=== PATIENT | female | born 1955 | race Caucasian/White ===

== ENCOUNTER → 2024-07-06 08:26 | Outpatient (REF) | payer OTHER, SELFPAY | LOC: HWWDC 08:26 | PROVIDERS: ATTENDING PHYSICIAN Family Medicine | DX: Z12.31 Encounter for screening mammogram for malignant neoplasm of breast (principal); Z87.891 Personal history of nicotine dependence | CPT/HCPCS: 71271; 77063; 77067 ==

== ENCOUNTER 2024-11-26 23:28 | Inpatient (IN) | payer OTHER, SELFPAY ==
[2024-11-26 20:22] VITALS: BP 134/94
[2024-11-26 20:57] VITALS: BP 145/72
[2024-11-26 20:58] VITALS: BMI 44.1
[2024-11-26 21:00] VITALS: BP 144/77
[2024-11-26 21:02] LABS: Hematocrit 44.1 % (37.0-47.0); Hemoglobin 15.2 g/dL (12.0-16.0); Mean Corp Hgb Conc. 34.5 g/dL (33.0-37.0); Mean Corpuscular Volume 89.3 fL (81.0-99.0); Nucleated Red Blood Cells % 0 %; Platelet Count 225 10^3/uL (130-400); Red Cell Dist. Width 11.5 % (11.5-14.5)
[2024-11-26 21:12] LABS: ALT (SGPT) 32 U/L (0-35); AST (SGOT) 60 U/L (14-36); Albumin 4.3 g/dl (3.5-5.0); Alkaline Phosphatase 51 U/L (38-126); Blood Urea Nitrogen 19 mg/dl (7-17); Calcium 9.2 mg/dl (8.4-10.2); Carbon Dioxide 25 mmol/L (22-30); Chloride 108 mmol/L (98-107); Estimated Creatinine Clearance 102 ml/min; Glucose 129 mg/dl (70-99); Lipase 37 U/L (23-300); Potassium 3.7 mmol/L (3.5-5.1); Sodium 140 mmol/L (135-145); Total Protein 7.0 g/dl (6.3-8.2); eGFR > 60.00
[2024-11-26 21:23] LABS: Troponin I < 0.012 ng/ml
[2024-11-26] MEDS: DILAUDID 1 MG IV (21:52)
[2024-11-26] MEDS: PROTONIX IV 40 MG IV (21:52)
[2024-11-26 22:00] VITALS: BP 130/75
--- NOTE | 2024-11-26 22:49 | ED.GENMED ---
History of Present Illness
General
Chief Complaint: Abdominal Symptoms
Source: patient
Exam Limitations: none
Time Seen by Provider: 11/26/24 20:42
Nursing documentation reviewed up to this point in time: agreed with
History of Present Illness
History of Present Illness:
see MDM
Past History
Past History
ED Past Medical History: HTN, Hypercholesterolemia, Hypothyroidism and Other (Arthritis)
ED Past Surgical History: Other
Social History
Tobacco: Non-smoker
Phy Exam
Physical Exam
Physical Exam:
GENERAL: Alert , looks a little pale, uncomfortable
EYE: pupils equal and reactive
NECK: Supple
ENT: o/p clr, mmm.
CARDIAC: Regular rate and rhythm .
LUNGS: Clear breath sounds bilaterally, no acute respiratory distress, no wheezes/rales/rhonchi
ABDOMEN: Soft, mild epigastric tenderness, no r/g, no cvat, normal bowel sounds
NEUROLOGICAL: Alert and oriented, no focal neuro deficits
SKIN: Warm and dry, skin intact.
MUSCULOSKELETAL: No edema, well perfused. neg nicko's sign
PSYCH: Normal and appropriate interaction.
Course
Orders/Labs/Results
Orders:
Orders
11/26/24 20:18
ECG [Electrocardiogram (*1)] Urgent
Reason for Study: Chest Pain
EKG- Treatment ONCE
11/26/24 20:50
Complete Blood Count/With Diff Urgent
Comprehensive Metabolic Panel Urgent
Lipase Urgent
Troponin I Urgent
11/26/24 21:15
HYDROmorphone [Dilaudid] 1 mg IV NOW STA
Pantoprazole [Protonix IV] 40 mg IV NOW STA
CR Chest Single View Urgent
Reason For Exam: epigastric
11/26/24 21:17
US Abdomen Complete/Upper Urgent
Comment:
Reason For Exam: epigastric pain
Abnormal Lab Results
11/26/24
20:50
Chloride 108 H mmol/L
(98-107)
BUN 19 H mg/dl
(7-17)
Glucose 129 H mg/dl
(70-99)
AST 60 H U/L
(14-36)
11/26/24 20:50
11/26/24 20:50
Vital Signs
Initial and Last Documented VS:
Initial Vital Signs
Temp Pulse Resp BP Pulse Ox
36.9 C 84 18 134/94 96
11/26/24 20:22 11/26/24 20:22 11/26/24 20:22 11/26/24 20:22 11/26/24 20:22
Last Documented Vital Signs
Temp Pulse Resp BP Pulse Ox
36.7 C 77 17 144/77 97
11/26/24 20:57 11/26/24 21:00 11/26/24 21:00 11/26/24 21:00 11/26/24 22:49
MDM/Problems Addressed
Differential Diagnosis Includes:
see MDM
MDM/Problems Addressed:
Note:
CHIEF COMPLAINT(S)
Abdominal pain and discomfort, described as feeling like trapped gas, with associated diarrhea and cold sweats.
HISTORY OF PRESENT ILLNESS
The patient is a 69-year-old female presenting with abdominal pain and discomfort that began last night. She reports previously experiencing a similar episode two years ago, which was evaluated at [facility] and diagnosed as a gallbladder
attack. The patient still has her gallbladder. Last night, after eating watermelon for dinner, she experienced pain and diarrhea throughout the night. The symptoms improved with the use of Tums. However, after consuming a turkey burger with onion
and tomato today, her symptoms recurred and intensified, accompanied by breaking out in a cold sweat, but not nausea or vomiting. The patient describes the pain as feeling like 'trapped gas' located in the upper abdomen, worsened after eating
certain foods such as onions and tomatoes. She has a recognized sensitivity to specific foods including avocados, bananas, and guacamole.
PAST MEDICAL AND SURIGICAL HISTORY
She has a history of a gallbladder attack diagnosed two years ago but has not had any surgeries on her abdomen. She denies any surgical history or previous cardiac catheterizations.
MEDICATIONS
Current medications include Verapamil and Lisinopril for blood pressure management.
ALLERGIES
Allergic to statins.
REVIEW OF SYSTEMS
- Gastrointestinal: Reports abdominal pain described as feeling like trapped gas, diarrhea, and episodes of significant pain rated at a 10 out of 10.
- Cardiovascular: No chest pain typical of myocardial infarction, no shortness of breath.
- Constitutional: Cold sweats and a sense of discomfort.
- Neurological: No reported dizziness or syncope.
PHYSICAL EXAM
- Abdominal: Staff intent on examining her abdomen; pain noted by the patient to be in the upper region, similar to previous gallbladder issues.
- Nursing notes reviewed and vital signs reviewed.
PLAN
- Order blood work and electrocardiogram (ECG) to rule out cardiac causes.
- Administer intravenous medications to manage pain and discomfort, including potential anti-acids.
- Evaluate gallbladder function and potential pathology through imaging.
DIFFERENTIAL DIAGNOSIS
The Differential Diagnosis includes, in no particular order and is not limited to:
1. Cholecystitis
2. Gastroesophageal reflux disease (GERD)
3. Peptic ulcer disease
4. Pancreatitis
5. Ischemic heart disease
6. Gastritis
7. Irritable bowel syndrome
8. Food intolerance or sensitivity
9. Acute myocardial infarction
10. Small bowel obstruction
The patient, a 69-year-old female with a history of hypertension, presented to the emergency department with gastric and back pain that began last night and improved overnight. Her pain returned after eating a turkey sandwich with tomato and onion.
She experienced excess gas, sweating, and significant epigastric pain that prompted her to seek emergency care, concerned it might be cardiac in nature. On arrival, she appeared uncomfortable but reported some relief after belching. An EKG showed no
ischemic changes. Physical examination revealed mild epigastric tenderness and a negative Mota sign. Ultrasound of the epigastric and right upper quadrant showed cholecystitis without cholangitis, and a slightly dilated common bile duct. Liver
function tests (LFTs) showed minimal elevation. She was evaluated for potential cholidocholithiasis, given the slightly elevated liver enzymes and dilated common bile duct. A decision was made to admit her for further evaluation with MRCP.
Additionally, her troponin levels were negative, ruling out myocardial infarction.
Note:
Disposition:
SUMMARY OF ENCOUNTER
The patient, a 69-year-old female with a history of hypertension, presented to the emergency department with gastric and back pain that began last night and improved overnight. Her pain returned after eating a turkey sandwich with tomato and onion.
She experienced excess gas, sweating, and significant epigastric pain that prompted her to seek emergency care, concerned it might be cardiac in nature. On arrival, she appeared uncomfortable but reported some relief after belching. An EKG showed no
ischemic changes. Physical examination revealed mild epigastric tenderness and a negative Mota sign. Ultrasound of the epigastric and right upper quadrant showed cholecystitis without cholangitis, and a slightly dilated common bile duct. Liver
function tests (LFTs) showed minimal elevation. She was evaluated for potential cholidocholithiasis, given the slightly elevated liver enzymes and dilated common bile duct. A decision was made to admit her for further evaluation with MRCP.
Additionally, her troponin levels were negative, ruling out myocardial infarction.
DISPOSITION
Admit
ASSESSMENT
Probable cholecystitis with dilated common bile duct, necessitating further evaluation for choledocholithiasis.
MANAGEMENT OF THE PATIENTS CARE WAS DISCUSSED WITH
Dr. Pérez from Gastroenterology was consulted and is aware of the patient�s condition and plan for MRCP.
PLAN
Admit the patient for further evaluation including an MRCP to assess the biliary tree for choledocholithiasis. Continue to monitor vital signs and manage symptoms.
INDEPENDENT REVIEW OF LABS AND INTERPRETATION OF TESTS
My independent review of liver function tests (LFTs) shows minimal elevation.
My independent review of lipase is normal.
My independent review of CBC is normal.
My independent review of the EKG indicates non-ischemic changes.
My independent interpretation of the ultrasound reveals cholecystitis and a slightly dilated common bile duct.
MEDICATION RECONCILIATION
Current medications include verapamil and lisinopril for hypertension.
MEDICAL DECISION MAKING
-Complexity of Data Reviewed: Chronic conditions affecting care: Hypertension, high cholesterol. Differential diagnosis includes cholecystitis, choledocholithiasis, gastroesophageal reflux disease, peptic ulcer disease, pancreatitis, ischemic heart
disease, gastritis, irritable bowel syndrome, food intolerance or sensitivity, acute myocardial infarction, small bowel obstruction.
-Data:
Category 1
Clinical evaluation included review of EKG and liver function tests. Ultrasound was used to assess the gallbladder and biliary system.
Category 2
My independent interpretation of the ultrasound confirmed cholecystitis with a dilated common bile duct.
Category 3
Discussion of management with Dr. Pérez from Gastroenterology.
DIAGNOSIS
1. Cholecystitis (ICD-10: K81.9)
2. Choledocholithiasis, suspected (ICD-10: K80.5)
*Pulse Oximetry
SaO2: 97
Oxygen Mode of Delivery: Room air
Patient hypoxic: no (96)
*Critical Care Note
Total Time (30-74mins, 75-104mins- exclusive of procedures): Not Applicable
ED Attending Note
-
Portions of this chart may have been created with voice recognition software.� Occasional wrong word or��sound alike� substitutions may have occurred due to the inherent limitations of voice recognition software.
Discharge Plan
Departure
Patient Disposition: Admit
Date of Disposition: 11/26/24
Time of Disposition: 22:45
Admit to: Med/Surg
Presentation/result/management discussed w/ accepting MD/DO: Hospitalist
Condition: Fair
Covid-19: Not Applicable
Discharge Problem:
Cholelithiasis, Common bile duct dilation
Prescriptions:
No Action
verapamil 180 MG tablet extended release
360 mg PO HS
levothyroxine 25 MCG tablet
75 mcg PO DAILY AT 0700
docusate sodium 100 MG capsule
200 mg PO HS
cholecalciferol (vitamin D3) 2,000 UNITS tablet
2,000 units PO DAILY
vit B1 [id number] [B Complex w-Vit C] 1 EACH tablet
1 ea PO DAILY
oxycodone 5 MG tablet
5 mg PO Q4HPRN PRN (Reason: mod-severe pain) Qty: 7 0RF
Referrals:
Zuri Sarkar DO [Family Provider, Family Practice]
Interventions
Interventions:
*Risk Screen - Suicide Last Done: 11/26/24 20:25
*General Assessment Last Done: 11/26/24 21:00
*Neglect/Abuse Screening Last Done: 11/26/24 20:25
*ED- Fall Risk Assessment Last Done: 11/26/24 21:00
*ED COVID-19 Vaccine History Last Done: 11/26/24 21:00
WB-Saguuv-Oksklvebab Assessment Last Done: 11/26/24 21:02
Discharge Date and Time
Print Language: PASHTO
--- NOTE | 2024-11-26 22:51 | HPS.HSE ---
Family Physician
-
Family Physician: Zuri Sarkar
Chief Complaint
-
Abdominal pain
History of Present Illness
This is a 69-year-old female with past medical history significant for hypothyroid, morbid obesity, obstructive sleep apnea coming to the emergency department with abdominal pain for 1 day.
Patient reports epigastric, blood radiating to the back that started after having a meal containing onion. She reports nausea but no vomiting. She denies having any diarrhea. She reports breaking into a cold sweat. She denies any shortness of
breath palpitations lightheadedness or dizziness. She denies having any pain in her chest. Patient reported that she had a similar episode about 2 years ago at [facility] and was told he has biliary colic with cholelithiasis.
In the emergency department, she was afebrile, blood pressure was 140/77 with a pulse of 77 and she is satting 87% on room air.
ECG shows normal sinus rhythm at rate of 79 without any acute ischemic changes. Troponin was negative. Chest x-ray was clear.
CBC was unremarkable, electrolyte BUN/creatinine were normal. AST was 60 otherwise LFTs were normal. Lipase was normal. Total bilirubin was normal.
Right upper quadrant ultrasound showing mild hepatomegaly with findings suggesting diffuse fatty liver. There was cholelithiasis without gallbladder wall thickening or distention. No intrahepatic ductal dilation. large common bile duct at 0.9 cm.
Medical History
Past Medical History
Past Medical History: Reports HTN, Hypercholesterolemia and Other (Obesity, MILTON on CPAP)
Past Surgical History: Reports Orthopedic (Right total knee arthroplasty)
Social History
Tobacco: Non-smoker
Alcohol: None
Drug: None
Personal:
Living: With Family
Family History
Family History: Not pertinent
Allergies / Home Medications
Allergies reflects when Allergies were last updated in [facility].
Home Medications with original date entered in [facility]
Allergy/Medication List:
Allergies
Allergy/AdvReac Type Severity Reaction Status Date / Time
levofloxacin (From Levaquin) Allergy leg pain Verified 11/26/24 20:24
Yuvrivz-VAH-AzE Reductase Allergy MUSCLE PAIN Verified 11/26/24 20:24
Inhibitor (Zvcygrg-Zpp-Pxm
Reductase Inhibitor)
Home Medications
cholecalciferol (vitamin D3) 50 mcg (2,000 unit) tablet 2,000 units PO DAILY 01/28/21
docusate sodium 100 mg capsule 200 mg PO HS 01/28/21
levothyroxine 25 mcg tablet 75 mcg PO DAILY AT 0700 01/28/21
verapamil 180 mg tablet,extended release 360 mg PO HS 01/28/21
[id number] 18 mg-10 mg-45 mg-5 mg-250 mg tablet (B Complex w-Vit C) 1 ea PO DAILY 01/28/21
oxycodone 5 mg tablet 5 mg PO Q4HPRN PRN mod-severe pain #7 tabs 01/30/21
Review of Systems
-
Constitutional: Reports No Symptoms
EENT: Reports No Symptoms
Respiratory: Reports No Symptoms
Cardiac: Reports No Symptoms
Abdomen/GI: Reports Abdominal Pain
: Reports No Symptoms
Musculoskeletal: Reports No Symptoms
Skin: Reports No Symptoms
Neurological: Reports No Symptoms
Endocrine: Reports No Symptoms
Hematologic/Lymphatic: Reports No Symptoms
Psych: Reports No Symptoms
Physical Exam
Vital Signs
Vital Signs
Temp Pulse Resp BP Pulse Ox
98.0 F 77 17 144/77 97
11/26/24 20:57 11/26/24 21:00 11/26/24 21:00 11/26/24 21:00 11/26/24 22:49
Physical Exam
General: Well Developed, Well Nourished and No Apparent Distress
HEENT: NormoCephalic, Moist mucous membranes and Atraumatic
Respiratory: Clear
Cardiac: S1/S2 and Regular Rhythm; No Murmur or Rub
GI: Soft, Non Tender, Non Distended and Normal Bowel Sounds; No Organomegaly
Rectal: Deferred by Provider
Musculoskeletal: No Clubbing, No Cyanosis and No Edema
Skin: No Rash
Neuro: Nonfocal/grossly intact
Laboratory Results
-
11/26/24 20:50
11/26/24 20:50
Laboratory Results
Total Bilirubin 0.5 mg/dl (0.2-1.3) 11/26/24 20:50
AST 60 U/L (14-36) H 11/26/24 20:50
ALT 32 U/L (0-35) 11/26/24 20:50
Alkaline Phosphatase 51 U/L (38-126) 11/26/24 20:50
Troponin I < 0.012 ng/ml 11/26/24 20:50
Lipase 37 U/L (23-300) 11/26/24 20:50
Data Reviewed
-
Ultrasound: Report Reviewed by me
Medical Tests (Nuc Med, Echo, EKG etc): Image Personally Visualized and interpreted
Lab Data: Labs Reviewed by me
Impression/Plan
-
IMPRESSION:
69 y.o with one day history of abdominal pain worse with food intake found to have biliary ductal dilation and cholelithiasis on U/S. Labs are mostly benign with mild AST elevation to 60 only. CBD at 9mm.
PLAN:
Abdominal pain - Possible choledocholithiasis w/o cholangitis or cholecystitis
- admit to med/surg
- NPO after midnight
- pain control and IV fluids
- mrcp in am
- GI consulted
Hypothyroid
- continue levothyroxine
HTN
- continue verapmil
MILTON
- not currently on CPAP
DVT PPX - lovenox sq
Code status - Full Code
[2024-11-26 23:00] VITALS: BP 147/97
[2024-11-26] MEDS: CALAN EXTENDED RELEASE 360 MG PO (23:57)
[2024-11-27] VITALS (10 sets, daily range): BP systolic 114–148; BP diastolic 60–85; BMI 41.1
[2024-11-27] MEDS: LR 1000 IV ×2 (00:01→13:11)
[2024-11-27] MEDS: SYNTHROID 75 MCG PO (05:28)
[2024-11-27 05:41] LABS: Hematocrit 41.7 % (37.0-47.0); Hemoglobin 14.5 g/dL (12.0-16.0); Mean Corp Hgb Conc. 34.8 g/dL (33.0-37.0); Mean Corpuscular Volume 89.1 fL (81.0-99.0); Platelet Count 224 10^3/uL (130-400); Red Cell Dist. Width 11.5 % (11.5-14.5)
[2024-11-27 06:08] LABS: ALT (SGPT) 147 U/L (0-35); AST (SGOT) 145 U/L (14-36); Albumin 4.5 g/dl (3.5-5.0); Alkaline Phosphatase 64 U/L (38-126); Blood Urea Nitrogen 16 mg/dl (7-17); Calcium 9.8 mg/dl (8.4-10.2); Carbon Dioxide 27 mmol/L (22-30); Chloride 105 mmol/L (98-107); Estimated Creatinine Clearance 119 ml/min; Glucose 102 mg/dl (70-99); Potassium 4.2 mmol/L (3.5-5.1); Sodium 139 mmol/L (135-145); Total Protein 7.2 g/dl (6.3-8.2); eGFR > 60.00
--- NOTE | 2024-11-27 08:46 | CON.GI ---
Addendum entered and electronically signed by Elizabeth Weems Do, MD 11/27/24 14:51:
I saw and evaluated the patient. I reviewed the resident�s note and agree with findings and plan as documented in the resident�s note.
María is a 69yo W with h/o obesity and MILTON who presents with acute epigastric abd pain. She has similar pain in the past and was seen at [facility] for possible biliary colic. She did start GLP1 one month ago. Vitals reviewed stable. Exam obese
no guarding or rebound. Labs reviewed LFTs rising. Abd Us fatty liver, CBD is 9mm prior was 7mm.
Impression
- Acute abd pain with rise in LFTs
Suspect biliary colic
- Fatty liver
- Obesity
- Hypothyroidism
- GERD
- Hyperlipidemia
- MILTON
Recommendations
- She declines MRI due to claustrophobia
- Appreciate surgical recs to OR today with IOC
- Diet per surgery
- Serial LFTs
- C/w PPI
GI will follow peripherally Please call us for questions
Hospitalist updated.
Original Note:
Consultation
-
Date/Time Consultation Requested: 11/26/2024 23:47
Date/Time Consultation Performed: 11/27/2024 08:00
Requesting Provider: Mariluz Handley MD
Performing Provider: Valeriano Patterson DO (Resident); Elizabeth Call MD
Reason for Consultation: Abdominal Pain
Medical History
Chief Complaint / HPI
Chief Complaint: Abdominal Pain
History of Present Illness:
María Swann is a 69F with a PMHx of hypothyroidism, obesity (recently started on Zepbound 1 month ago), MILTON, GERD, and hyperlipidemia who presented to the ED last night with abdominal pain.
Patient endorses epigastric abdominal pain that is intermittent, radiates through to the back and described as 'pressure-like', that started 2 nights ago. On that night she reports eating watermelon which she never does, because it usually gives her
abdominal pains and diarrhea. Shortly after eating watermelon, patient started to experience the pain so she took a Tums which did not relieve the pain. The episode lasted a few hours but subsided before going to bed. The patient woke up the next
morning in her usual state of health. She was okay until dinner time (1800) when she experienced that pain again but more severe after a salad consisting of onion, tomato and olive oil. At this time, the patient also because diaphoretic, so her
brought her to the ED. Patient otherwise denies nausea, vomiting, jaundice, icterus, change in stool color, change in urine color, fevers, chills, pruritus, or confusion.
Patient states this episode is similar to one that she experienced approximately 2 years ago. She was seen at [facility] where US showed cholelithiasis and she was dx with biliary colic. She also reports that approximately 19 months ago in April
2023, she was having episodes of chalky white stools and orange urine, which prompted evaluation by her primary care. US at that time showed cholelithiasis with mild GB thickening without ductal dilatation with CBD measuring 7mm.
ED Course:
Afebrile, O2 87% on RA, VS otherwise stable, with a normal exam. CBC wnl, BMP wnl, AST 60, LFTs otherwise wnl. Lipase wnl.
RUQ US: mild hepatomegaly, diffuse fatty liver, cholelithiasis without wall thickening/distension. No intrahepatic ductal dilatation. CBD 9mm when compared to 7mm on 04/18/2023.
This morning the patient states that she is feeling much better after medical management. She denies abdominal pain, fever, chest pain, nausea, vomiting, or diarrhea. She is awaiting MRCP.
Family History
Family history includes a brother with soft cell tumor of liver. Aunt was diagnosed with early colon CA at age 40 with colectomy, otherwise no first degree relatives with colon CA but patient endorses multiple family members in which high risk
polyps were noted. Patient herself has history of high risk polyp for which she was getting more frequent colonoscopies. Patient endorses after last colonoscopy she was cleared for q 5 year scopes. Uncle and aunts with history of cholelithiasis but
no first degree relatives. No family history of IBD.
Dietary History
Patient endorses eating mainly salads and grilled chicken because nothing agrees with her stomach. Notes that watermelon, which she ate on first night, and other fruits in general cause her abdominal pain and diarrhea, although this episode is
different. She also notes a history chronic constipation for which she takes daily psyllium husk and stool softeners. She notes normally having daily bowel movements but being more constipated starting around 1 month ago. She was also recently
started on Zepbound around that time and has been on the 2.5mg weekly dose.
Past Medical History
Past Medical History: Other (hypothyroidism, obesity (recently started on Zepbound 1 month ago), MILTON, GERD, and hyperlipidemia)
Past Surgical History: Orthopedic (R Knee TKR; denies abdominal surgeries. )
Social History
Tobacco: Non-Smoker
Alcohol: Occasional (wine)
Drug: None
Personal:
Living: With Family
Family History
Family History: Other (Reviewed, see HPI. )
Allergies / Home Medications
Allergy/AdvReac Type Severity Reaction Status Date / Time
levofloxacin (From Levaquin) Allergy leg pain Verified 11/26/24 20:24
Uqgmovi-ZXA-MiH Reductase Allergy MUSCLE PAIN Verified 11/26/24 20:24
Inhibitor (Txyqyjo-Kws-Lla
Reductase Inhibitor)
�Medication �Instructions �Recorded
levothyroxine 25 mcg tablet 75 mcg PO DAILY AT 0700 01/28/21
verapamil 180 mg tablet,extended 360 mg PO HS 01/28/21
release
rosuvastatin 5 mg tablet 5 mg PO DAILY 11/26/24
Review of Systems
-
History Source: Patient
All other systems: A 12 pt ROS was Negative except as stated above in HPI
Vital Signs
Temp Pulse Resp BP Pulse Ox
97.9 F 52 12 114/60 94
11/27/24 08:05 11/27/24 08:05 11/27/24 08:05 11/27/24 08:05 11/27/24 08:05
Physical Exam
Exam
General: No Apparent Distress and Comfortable; Negative Fever or Sweats
HEENT: Normocephalic and Anicteric
Respiratory: Clear; Negative Wheezes, Rales or Rhonchi
Cardiac: S1/S2 and Regular Rhythm
GI: Soft, Non Tender, Non Distended and Normal Bowel Sounds
Skin: Warm
Neuro: Awake
Psych: Calm
Results
WBC 6.3 10^3/uL (4.8-10.8) 11/27/24 05:31
Hgb 14.5 g/dL (12.0-16.0) 11/27/24 05:31
Hct 41.7 % (37.0-47.0) 11/27/24 05:31
MCV 89.1 fL (81.0-99.0) 11/27/24 05:31
Plt Count 224 10^3/uL (130-400) 11/27/24 05:31
Absolute Neuts (auto) 3.4 10^3/uL (1.4-6.5) 11/26/24 20:50
Sodium 139 mmol/L (135-145) 11/27/24 05:31
Potassium 4.2 mmol/L (3.5-5.1) 11/27/24 05:31
Chloride 105 mmol/L (98-107) 11/27/24 05:31
Carbon Dioxide 27 mmol/L (22-30) 11/27/24 05:31
BUN 16 mg/dl (7-17) 11/27/24 05:31
Creatinine 0.6 mg/dL (0.6-1.0) 11/27/24 05:31
Calcium 9.8 mg/dl (8.4-10.2) 11/27/24 05:31
Total Bilirubin 0.5 mg/dl (0.2-1.3) 11/27/24 05:31
AST 145 U/L (14-36) H 11/27/24 05:31
ALT 147 U/L (0-35) H 11/27/24 05:31
Alkaline Phosphatase 64 U/L (38-126) 11/27/24 05:31
Lipase 37 U/L (23-300) 11/26/24 20:50
Diagnostic Image Results:
RUQ US 11/26/24: Mild hepatomegaly with findings suggesting diffuse fatty liver. Cholelithiasis. No gallbladder wall thickening or findings to suggest intrahepatic biliary tract dilatation. Enlarged common bile duct at 0 9 cm. Negative sonographic
Mota's sign.
RUQ US 04/18/23: Findings suggesting diffuse fatty liver. Cholelithiasis with mild gallbladder wall thickening. Negative sonographic Mota's sign. No findings to suggest biliary tract dilatation.
GI Procedures:
EUS/aspiration on 06/12/2019 with results negative for malignancy in the setting of pancreatic cysts.
Colonoscopy:
02/2020: Hyperplastic polyp, negative histology.
Colonoscopy due: February 2025.
Assessment / Plan
-
María Swann is a 69F with a PMHx of hypothyroidism, obesity (recently started on Zepbound 1 month ago), MILTON, GERD, and hyperlipidemia who presented with intermittent epigastric abdominal pain after eating meals that is similar to an episode two
years ago when she was diagnosed with biliary colic. Patient has been afebrile with normal WBCs. US of the RUQ showed cholelithiasis with a mildly distended CBD of 9mm that is compared to a 7mm diameter on US 17 months ago. LFTs on admission were
mostly unremarkable with only a mild elevation in AST to 60. LFTs this morning are rising with AST 145 and ALT 147, with normal Tbili, Dbili, and Alk-phos. This could represent early choledocholithiasis. MR/MRCP was ordered by the primary team.
#Cholelithiasis
#Transaminitis
#History of Biliary Colic
#Steatohepatitis
#History of Recent Medication Initiation (Zepbound)
#Chronic Constipation
- Await MR/MRCP results
- Continue NPO
- If study reveals a stone, consider ERCP for stone removal
- If MRCP is equivocal consider EUS +/- ERCP
- Continue to monitor LFTs, WBC, temps
- Continue to monitor for signs of pancreatitis in the setting of recent Zepbound, although initial lipase was normal
- May need to consider fructose intolerance as a potential diagnosis for evaluation in the outpatient setting given history
- Continue Bowel Regimen
- Given recurrence of sx, may opt for elective CCY; consult GS.
Total Time Spent with Patient (in minutes): 42
Data Reviewed
-
Ultrasound: Report Reviewed by me and Discussed with Patient
Old Records: Reviewed
-
-
Thank you for consultation and allowing me to participate in the patient's care. Please call the radio communications mechanician GI physician during the after hours with any questions or concerns.
--- NOTE | 2024-11-27 09:13 | W.PN.HOSP.TC ---
Addendum entered and electronically signed by Bob Feliciano DO 11/27/24 17:33:
Dr. Lovelace graciously accepted the patient to his service and plans to discharge her himself.
Original Note:
Today's Communication/Plan
-
N.p.o.
IV fluids
Analgesics
MRCP
General Surgery consult
Assessment / Plan
Assessment / Plan
Gen-AAOx3, NAD
HEENT-NC, AT, anicteric, clear oral mm
Neck-supple
CV-reg, no M, +S1/S2
Lungs-clear B/L
Abd-soft, NT, ND
Ext-no edema
Musculoskeletal-no cyanosis, clubbing
Skin-warm and dry
Neuro-grossly non-focal
Psych-calm, cooperative
Biliary colic -symptomatic cholelithiasis. No signs or symptoms of sepsis.
Ultrasound shows mild hepatomegaly, diffuse fatty liver, cholelithiasis, no gallbladder wall thickening or intrahepatic biliary ductal dilation. Enlarged CBD, 0.9 cm. Negative sonographic Mota sign.
Elevated transaminases noted, bilirubin and alkaline phosphatase normal.
Given improvement in pain, suspect she passed a gallstone. MRCP pending.
General surgery consult for eventual cholecystectomy. Discussed with patient.
She had similar symptoms 2 years ago and was hospitalized at [facility].
Continue n.p.o., IV fluids.
Hyperlipidemia -hold Crestor for elevated transaminases.
Hypothyroidism -continue levothyroxine.
Essential hypertension -stable.
MILTON -uses CPAP.
Morbid obesity due to excess calories
Full code
Anticipated Discharge: > 48 hours
Subjective/Interval History
-
Date of Service: November 27, 2024
Patient seen and examined. Feels better, denies abdominal pain. No complaints.
Objective Data
-
Labs:
Laboratory Results
11/27/24
05:31
WBC 6.3
Hgb 14.5
Hct 41.7
Plt Count 224
Sodium 139
Potassium 4.2
Chloride 105
Carbon Dioxide 27
BUN 16
Creatinine 0.6
Glucose 102 H
Calcium 9.8
Total Bilirubin 0.5
AST 145 H
ALT 147 H
Alkaline Phosphatase 64
Vital Signs:
Vital Signs
Temp Pulse Resp BP Pulse Ox
97.9 F 52 12 114/60 94
11/27/24 08:05 11/27/24 08:05 11/27/24 08:05 11/27/24 08:05 11/27/24 08:05
I&O
11/26/24 11/27/24 11/28/24
06:59 06:59 06:59
Intake Total 900 / 900
Balance 900 / 900
Review of Systems
-
History Source: Patient
All other systems: Reviewed and negative
--- NOTE | 2024-11-27 13:47 | CON.GS ---
Addendum entered and electronically signed by Elizabeth Weems Do, MD 11/27/24 14:52:
Please disregard the below addendum.
Meant to addend Resident's note dated today
Addendum entered and electronically signed by Elizabeth Weems Do, MD 11/27/24 14:23:
I saw and evaluated the patient. I reviewed the resident�s note and agree with findings and plan as documented in the resident�s note.
María is a 69yo W with h/o obesity and MILTON who presents with acute epigastric abd pain. She has similar pain in the past and was seen at [facility] for possible biliary colic. She did start GLP1 one month ago. Vitals reviewed stable. Exam obese
no guarding or rebound. Labs reviewed LFTs rising. Abd Us fatty liver, CBD is 9mm prior was 7mm.
Impression
- Acute abd pain with rise in LFTs
Suspect biliary colic
- Fatty liver
- Obesity
- Hypothyroidism
- GERD
- Hyperlipidemia
- MILTON
Recommendations
- She declines MRI due to claustrophobia
- Appreciate surgical recs to OR today with IOC
- Diet per surgery
- Serial LFTs
- C/w PPI
GI will follow peripherally Please call us for questions
Hospitalist updated.
Original Note:
Consultation
-
Date/Time Consultation Performed: 11/27/24
Requesting Provider: Braden
Performing Provider: Radu
Reason for Consultation: Biliary colic
Medical History
-
Chief Complaint: Abd pain
History of Present Illness:
69F with acute onset RUQ/epigastric pain with radiation to the back. Prior similar episodes including one with pale stools and dark urine. Pain self limited and now pain is improved. Feels like 'bricks on my belly, this episode began after eating
watermelon. She also ate a turkey burger and a sald with olive oil that worsened her pain. Denies f/c/n/v, denies stool/urine changes this episode.
Past Medical History
Past Medical History: Other (hypothyroidism, obesity (recently started on Zepbound 1 month ago), MILTON, GERD, and hyperlipidemia))
Past Surgical History: Orthopedic
Social History
Tobacco: Non-Smoker
Alcohol: Occasional
Drug: None
Personal:
Living: With Family
Family History
Family History: Reviewed & Noncontributory
Allergies / Home Medications
Allergy/AdvReac Type Severity Reaction Status Date / Time
levofloxacin (From Levaquin) Allergy leg pain Verified 11/26/24 20:24
Txbhvlz-RWX-BwS Reductase Allergy MUSCLE PAIN Verified 11/26/24 20:24
Inhibitor (Emyqmry-Nes-Msh
Reductase Inhibitor)
�Medication �Instructions �Recorded �Confirmed �Type
levothyroxine 25 mcg tablet 75 mcg PO DAILY AT 0700 Thyroid 01/28/21 11/26/24 History
verapamil 180 mg tablet,extended 360 mg PO HS Blood Pressure 01/28/21 11/26/24 History
release
rosuvastatin 5 mg tablet 5 mg PO DAILY High Cholesterol 11/26/24 11/26/24 History
Review of Systems
-
A 10 point review of systems was completed, and was negative except as per HPI.
Physical Exam
Vital Signs
Temp Pulse Resp BP Pulse Ox
97.9 F 52 12 114/60 94
11/27/24 08:05 11/27/24 08:05 11/27/24 08:05 11/27/24 08:05 11/27/24 08:05
11/26/24 11/27/24 11/28/24
06:59 06:59 06:59
Actual Weight 123.7 kg
Body Mass Index (BMI) 44.1
Lab Results
11/27/24 05:31
11/27/24 05:31
WBC 6.3 10^3/uL (4.8-10.8) 11/27/24 05:31
Hgb 14.5 g/dL (12.0-16.0) 11/27/24 05:31
Hct 41.7 % (37.0-47.0) 11/27/24 05:31
Plt Count 224 10^3/uL (130-400) 11/27/24 05:31
Abs Immat Gran (auto) 0.0 10^3/uL (0-0.05) 11/26/24 20:50
Neutrophils % 55.3 % (42.2-75.2) 11/26/24 20:50
Physical Exam
General: Well Developed, Well Nourished and No Apparent Distress
HEENT: Normocephalic and Anicteric
GI: Soft, Non Tender and Non Distended
Skin: Warm and Dry
Neuro: AO x 3
Psych: Calm
Data Reviewed
-
Ultrasound: Image Personally Visualized and interpreted, Report Reviewed by me, Discussed with Physician, Discussed with Patient and Discussed with Family
Labs: Labs Reviewed by me, Discussed with Physician, Discussed with Patient and Discussed with Family
Assessment / Plan
-
69F with acute biliary colic, possible passed stone
AFVSS, pain resolved, nt on exam
No leukocytosis, mild elevation ALT/AST
US with stones, no GBWT, no PVF, CBD 9mm (increase from prior study with 7mm)
Plan:
[facility] for rCCY with cholang
IV abx preop
D/w pt, daughter, , informed consent obtained
--- NOTE | 2024-11-27 15:52 | PTCARENOTE ---
At 14:54 patient arrived from ED; CHG bath provided; At 15:46 transport brought patient to OR in bed.
--- NOTE | 2024-11-27 17:37 | W.IMMPOSTOP ---
Surgical Immed Post Op Note
-
Primary Surgeon: Radu
Assisting Surgeon: Zelalem GRANT
Pre-op Diagnosis: Biliary colic
Post-op Diagnosis: Same
Procedure Performed: Robot assisted laparosocpic cholecystectomy with intraoperative cholangiogram and intraoperative near-infared imaging of major extrahepatic bile ducts
Anesthesia Type: GETA
Specimen / Cultures: Gallbladder
Estimated Blood Loss: 2cc
Complications: None immediate
Operative Findings: Softly distended gallbladder with mildly thickened wall and mild fibrosis of posterior plane; cholangiogram with good opacification of biliary tree without filling defects and good flow into duodenum
--- NOTE | 2024-11-27 17:39 | W.DS.TRANS ---
Addendum entered and electronically signed by CATRACHO Merritt 11/30/24 15:29:
dictated #[id number]
Original Note:
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
-
Discharge Instructions:
Discharge Diagnosis/Procedures Robotic cholecystectomy
Diet No restrictions
Activity No strenuous activity
Driving Restrictions No driving for 24 hours
Bathing Restrictions OK to Shower
Wound Care Allow skin glue to flake off on its own
Instructions: Cholecystectomy - Discharge instructions
Stand-Alone Forms:
Changes to Home Medications: No
Discharge Medications:
DC Medications w/original date entered in [facility]
levothyroxine 25 mcg tablet 75 mcg PO DAILY AT 0700 Thyroid 01/28/21
verapamil 180 mg tablet,extended release 360 mg PO HS Blood Pressure 01/28/21
rosuvastatin 5 mg tablet 5 mg PO DAILY High Cholesterol 11/26/24
tramadol 50 mg tablet 50 - 100 mg (1 - 2 x 50 mg) PO Q6H PRN Pain #20 tabs 11/27/24
Home Medication Changes
Pending Results: No
[2024-11-27] MEDS: ZOFRAN 4 MG IV (18:21)
--- NOTE | 2024-11-27 19:40 | PTCARENOTE ---
Pt arrived from PACU, drowsy, family at bedside. vss. Made Pt aware of possiblity for leaving Pt states 'I want to stay.' oriented to room.call dhaliwal within reach.
[2024-11-27] MEDS: LOVENOX 40 MG SC (21:31)
[2024-11-27] MEDS: CALAN EXTENDED RELEASE 360 MG PO (21:31)
--- NOTE | 2024-11-28 02:54 | DOWNTIME ---
There was a [employer] Supervisor Downtime on 11/28/2024 from 0100 to 11/28/2024 at 0235. Downtime documentation of patient's care, including medication administrations, has been reconciled in the electronic record per guidelines. Refer to the
patient's paper chart under the miscellaneous tab to see printed paper medication records and downtime forms.
[2024-11-28 03:00] VITALS: BP 110/64
[2024-11-28] MEDS: SYNTHROID 75 MCG PO (06:05)
[2024-11-28 06:47] LABS: ALT (SGPT) 126 U/L (0-35); AST (SGOT) 68 U/L (14-36); Albumin 4.4 g/dl (3.5-5.0); Alkaline Phosphatase 64 U/L (38-126); Blood Urea Nitrogen 14 mg/dl (7-17); Calcium 9.7 mg/dl (8.4-10.2); Carbon Dioxide 27 mmol/L (22-30); Chloride 104 mmol/L (98-107); Estimated Creatinine Clearance 118 ml/min; Glucose 123 mg/dl (70-99); Potassium 4.5 mmol/L (3.5-5.1); Sodium 137 mmol/L (135-145); Total Protein 7.2 g/dl (6.3-8.2); eGFR > 60.00
[2024-11-28 07:20] VITALS: BP 140/76
--- NOTE | 2024-11-28 09:08 | PTCARENOTE ---
assumed care of pt from previous shift at @0700. assessment as documented. pt tolerating regular diet, ambulating in room and hallway. endorses mild shoulder discomfort - pt educated to increase activity. pt verbalized understanding. denied
need for pain medication. discharge instructions reviewed with pt and . to lobby via w/volunteer.
--- NOTE | 2024-11-28 09:29 | CM ---
Reviewed the chart notes and spoke with the patient at the bedside. IMM reviewed. Patient resides with spouse in a ranch style home with a ramp to enter. The patient reports no DME/VN/SNF. Confirmed pharmacy of choice is [facility].
Patient's spouse provide transportation home today.
Plan: Discharge to home. No need.
--- NOTE | 2024-12-02 13:40 | OR.RPT ---
Operative Report
Operative Report
Primary Surgeon: Radu
Assisting Surgeon: Zelalem GRANT
Pre-op Diagnosis: Biliary colic
Post-op Diagnosis: Same
Procedure Performed: Robot assisted laparoscopic cholecystectomy with intraoperative cholangiogram and intraoperative near-infared imaging of major extrahepatic bile ducts
Anesthesia Type: GETA
Specimen / Cultures: Gallbladder
Estimated Blood Loss: 2cc
Complications: None immediate
Operative Findings: Softly distended gallbladder with mildly thickened wall and mild fibrosis of posterior plane; cholangiogram with good opacification of biliary tree without filling defects and good flow into duodenum
DOS: 11/27/24
Indications: This 69F developed right upper quadrant/epigastric pain and on workup was found to have cholelithiasis with elevated transaminases. Laparoscopic cholecystectomy with robotic assist and cholangiogram was planned.
Description of procedure: The patient was placed on the operating table in the supine position. General anesthesia was induced. A time-out was completed verifying correct patient, procedure, site, positioning, and special equipment prior to
beginning this procedure. An orogastric tube was placed. The abdomen was prepped and draped in the usual sterile fashion. A stab incision was made in left upper quadrant and the Veress needle was inserted. Proper position was confirmed by aspiration
and saline meniscus test. The abdomen was insufflated with carbon dioxide to a pressure of 12 mmHg. The patient tolerated insufflation well.
An 8mm optical trocar was then inserted in the left upper quadrant. The laparoscope was inserted and the abdomen inspected. No injuries from initial trocar placement or Veress needle insertion were noted. Additional 8mm trocars were then inserted in
the following locations: above the umbilicus, right mid clavicular line at the level of the umbilicus and 6cm lateral to this on the right. The abdomen was inspected and no abnormalities were found. The table was placed in the reverse Trendelenburg
position with the right side up. The dome of the gallbladder was grasped with an atraumatic grasper and retracted over the dome of the liver. The infundibulum was also grasped with an atraumatic grasper and retracted toward the right lower
quadrant. This maneuver exposed Calot�s triangle. The tissue around the triangle was mildly edematous and fatty. The peritoneum overlying the gallbladder infundibulum was then incised and the cystic duct and cystic artery identified and
circumferentially dissected so that a clear view of the liver was achieved through a window between the cystic duct an cystic artery. Bleeding from the cystic artery was encountered and controlled with direct pressure and bipolar cautery. At this
time, the only two structures going into the gallbladder were the cystic artery and cystic duct. ICG was used to visualize the cystic and common ducts and the common duct was protected.
A kayla was made in the cystic duct and a cholangiogram catheter was threaded through the abdominal wall and into the cystic duct and secured with a 2-0 silk. A cholangiogram was obtained that showed good opacification of the biliary tree without
filing defects and good flow into the duodenum. The catheter was removed.
The cystic duct was then doubly clipped and divided and the and cystic artery was controlled with bipolar and divided. Both structures were taken close to the gallbladder. The gallbladder was then dissected from its peritoneal attachments by
electrocautery. Hemostasis was assured and the gallbladder and contained stones were removed using an endoscopic retrieval bag placed through the umbilical port. The gallbladder was passed off the table as a specimen. The gallbladder fossa was
closely inspected and hemostasis was assured. There was no evidence of bleeding from the gallbladder fossa or cystic artery or leakage of the bile from the cystic duct stump. The umbilical trocar site was closed at the fascial level
laparoscopically with 2-0 PDS. Secondary trocars were removed under direct vision and noted to be hemostatic. The laparoscope was withdrawn and the umbilical trocar removed. The abdomen was allowed to collapse. The skin was closed with subcuticular
sutures of 4-0 monocryl and topical skin adhesive. The orogastric tube was removed.
The patient tolerated the procedure well and was taken to the postanesthesia care unit in stable condition.
== END 2024-11-28 09:17 | disposition home or self-care (01) | DRG 418 ==
LOC: 2 SOUTH 23:28
PROVIDERS: Hospitalist; Radiology Diagnostic Radiology; Student in an Organized Health Care Education/Training Program; ADMITTING PHYSICIAN Internal Medicine; ATTENDING PHYSICIAN Surgery; CONSULT PHYSICIAN Internal Medicine Gastroenterology; EMERGENCY PHYSICIAN Emergency Medicine; FAMILY PHYSICIAN Family Medicine
PROC: 8E0W4CZ Robotic Assisted Procedure of Trunk Region, Percutaneous Endoscopic Approach (ICD-10-PCS; 2024-11-27)
PROC: 0FT44ZZ Resection of Gallbladder, Percutaneous Endoscopic Approach (ICD-10-PCS; 2024-11-27)
PROC: BF101ZZ Fluoroscopy of Bile Ducts using Low Osmolar Contrast (ICD-10-PCS; 2024-11-27)
DX: K80.40 Calculus of bile duct with cholecystitis, unspecified, without obstruction (principal); Z68.41 Body mass index [BMI] 40.0-44.9, adult; E03.9 Hypothyroidism, unspecified; E78.00 Pure hypercholesterolemia, unspecified; I10 Essential (primary) hypertension; M19.90 Unspecified osteoarthritis, unspecified site; E66.01 Morbid (severe) obesity due to excess calories; K21.9 Gastro-esophageal reflux disease without esophagitis; K75.81 Nonalcoholic steatohepatitis (NASH); R16.0 Hepatomegaly, not elsewhere classified; K59.09 Other constipation; F40.240 Claustrophobia; K82.8 Other specified diseases of gallbladder; G47.33 Obstructive sleep apnea (adult) (pediatric); Z96.651 Presence of right artificial knee joint; Z79.890 Hormone replacement therapy; Z88.1 Allergy status to other antibiotic agents; Z88.8 Allergy status to other drugs, medicaments and biological substances; Z80.0 Family history of malignant neoplasm of digestive organs
CPT/HCPCS: 71045; 74300; 76000; 76700; 80053; 82248; 83690; 84484; 85025; 85027; 88304; 93005; A4300

== ENCOUNTER → 2025-03-01 11:27 | Outpatient (REF) | payer OTHER, SELFPAY | LOC: HWRAD 11:27 | PROVIDERS: ATTENDING PHYSICIAN Family Medicine | DX: M79.651 Pain in right thigh (principal) | CPT/HCPCS: 73502 ==